=== PATIENT | female | born 2000 | race Caucasian/White ===

== ENCOUNTER 2022-01-29 10:18 | Day surgery (SDC) | payer BC, SELFPAY ==
[2022-01-29] VITALS (22 sets, daily range): BP systolic 102–133; BP diastolic 35–81; PULSE 77–104; RESP 14–17; TEMP 36.1–36.2; O2SAT 98–100
--- NOTE | ~2022-01-29 | CT_ITS ---
EXAMINATION: CT abdomen pelvis w con DATE: 01/29/2022 12:24 INDICATION: Right lower quadrant abdominal pain TECHNIQUE: Computed tomography (CT) of the abdomen and pelvis was performed with 100 mL Omnipaque-350 intravenous contrast. Automated exposure control and iterative reconstruction technique were employe d. The dose-length product was 458.84 mGy-cm. COMPARISON: None FINDINGS: Mild dependent atelectasis in the left lower lobe. Heart size is normal. No pericardial or pleural ef fusion. Liver, gallbladder, spleen, pancreas, bilateral adrenal glands and kidneys are normal. The ap pendix is dilated to 1.5 cm diameter with prominent serosal enhancement, mural edema at the base of t he appendix and adjacent to the cecum and surrounding inflammatory stranding consistent with acute ap pendicitis. No abscess or free intraperitoneal gas to suggest rupture. Bowels are otherwise unremarka ble. Bladder, anteverted uterus and bilateral adnexa are unremarkable. Negligible likely physiologic free fluid in the cul-de-sac. No pathologically enlarged abdominal or pelvic lymphadenopathy. Bones a re unremarkable. IMPRESSION: 1. Acute appendicitis. Dr. Aparicio discussed these findings with Dr. Chang at 12:45 PM. Reviewed, dictated and finalized at location A. E CLERK IMPRESSION: 1. Acute appendicitis. Dr. Aparicio discussed these findings with Dr. Chang at 1 2:45 PM.
--- NOTE | 2022-01-29 10:50 | ED.ABDPAIN ---
HPI - Abdominal Pain General Chief Complaint: Abdominal Pain Stated Complaint: abd pain Time Seen by Provider: 01/29/22 10:31 History of Present Illness HPI narrative: 21-year-old female history of anxiety depression presents to the emergency room for evaluation of unprovoked abdominal pain that began on night. States pain is located in her right lower quadrant. Associated with intermittent episodes of diarrhea and constipation. No history of IBS. Also endorses nausea. Reports a subjective fever this morning. Pain is worse with ambulation and occasionally radiates into her mid pelvis. Reports less menstrual period was 5 days ago. No concerns over STDs. Denies back pain. Related Data Home Medications Medication Instructions Recorded Confirmed citalopram 10 mg tablet 10 mg PO DAILY 01/29/22 Allergies Allergy/AdvReac Type Severity Reaction Status Date / Time No Known Allergies Allergy Verified 01/29/22 10:28 Review of Systems Review of Systems: CONSTITUTIONAL: Denies fever, chills, or sweats. EYES: Denies visual changes, redness, or discharge. ENT: Denies rhinorrhea, congestion, sore throat, or otalgia. CARDIOVASCULAR: Denies chest pain, palpitations, or edema. RESPIRATORY: Denies cough or dyspnea. GASTROINTESTINAL: Reports abdominal pain, nausea, diarrhea, constipation GENITOURINARY: Denies dysuria or hematuria. SKIN: Denies rash or itching. MUSCULOSKELETAL: Denies back pain, joint pain, or myalgia. NEUROLOGIC: Denies headache, numbness, dizziness, or weakness. PSYCHIATRIC: Denies anxiety or depression. [facility] Past Medical History Medical History (Updated 01/29/22 @ 14:10 by Pino Pemberton MD) Seasonal allergies Exam Narrative: GENERAL: Well-appearing, well-nourished, no physical limitations, and in no acute distress. HEAD: Normocephalic, atraumatic. EYES: Conjunctivae normal, PERRLA and EOMI. CHEST: Clear to auscultation. No respiratory distress. No wheezes rales or rhonchi. HEART: Regular rate and rhythm. No murmur heard. Normal peripheral pulses. ABDOMEN: Soft, RLQ tendeness, nondistended, normal active bowel sounds. No stridor. Positive psoas and obturator signs. BACK: No CVA tenderness EXTREMITIES: Normal range of motion. No edema. No clubbing or cyanosis SKIN: Warm, dry, no rash. No noted wounds NEURO: No focal deficits. Alert and oriented x3. MAEW. CN's II-XI intact bilaterally, normal gait PSYCH: Cooperative. Normal mood and affect. Course Vital Signs Vital signs: Vital Signs Temperature 36.1 C L 01/29/22 10:20 Pulse Rate 89 01/29/22 10:20 Respiratory Rate 15 01/29/22 10:20 Blood Pressure 130/79 01/29/22 10:20 Pulse Oximetry 100 01/29/22 10:20 Oxygen Delivery Room Air 01/29/22 10:20 Temperature 36.1 C L 01/29/22 10:20 Pulse Rate 89 01/29/22 10:20 Respiratory Rate 15 01/29/22 10:20 Blood Pressure 118/62 01/29/22 12:46 Pulse Oximetry 100 01/29/22 12:46 Oxygen Delivery Room Air 01/29/22 10:20 MDM - Abdominal Pain MDM Narrative Medical decision making narrative: 21-year-old female presented emergency room with complaints of right lower quadrant pain concerning for appendicitis. Abdominal exam suspicious for appendicitis. CT scan was positive. On-call surgeon was consulted. IV antibiotics were initiated. Lab Data 01/29/22 10:44 01/29/22 10:44 Labs: Lab Results 01/29/22 01/29/22 01/29/22 Range/Units 10:44 10:44 10:44 WBC 13.6 H (4.5-10.0) K/mm3 RBC 4.97 (4.2-5.4) M/mm3 Hgb 14.5 (12.0-15.0) g/dL Hct 42.9 (37.0-47.0) % MCV 86.3 (80-100) fl MCH 29.2 (26-34) pg MCHC 33.8 (32-36) g/dl RDW 11.6 (11.5-14.5) % Plt Count 199 (150-375) k/mm3 MPV 11.6 H (7.4-10.4) fl Immature Gran % (Auto) 0.3 (0-0.5) % Neut % (Auto) 72.6 (45.5-73.1) % Lymph % (Auto) 20.0 (18.3-44.2) % [place] % (Auto) 5.9 (2.6-8.5) % Eos % (Auto) 0.8 (0-4.4)
[2022-01-29 11:00] LABS: Basophils Absolute Auto 0.1 K/mm3 (0.0-0.1); Basophils Percent Auto 0.4 % (0.2-1.2); Eosinophils Absolute Auto 0.1 K/mm3 (0-0.3); Eosinophils Percent Auto 0.8 % (0-4.4); Hematocrit 42.9 % (37.0-47.0); Hemoglobin 14.5 g/dL (12.0-15.0); Immature Granulocyte Absolute 0.04 K/mm3 (0.00-0.031); Immature Granulocyte Percent A 0.3 % (0-0.5); Lymphocytes Absolute Auto 2.72 K/mm3 (0.9-3.2); Mean Corpuscular HGB Conc 33.8 g/dl (32-36); Mean Corpuscular Hemoglobin 29.2 pg (26-34); Mean Corpuscular Volume 86.3 fl (80-100); Mean Platelet Volume 11.6 fl (7.4-10.4); Monocytes Absolute Auto 0.8 K/mm3 (0.1-0.6); Monocytes Percent Auto 5.9 % (2.6-8.5); Neutrophils Absolute Auto 9.9 K/mm3 (1.3-6.7); Neutrophils Percent Auto 72.6 % (45.5-73.1); Platelet Count Result 199 k/mm3 (150-375); Red Blood Count 4.97 M/mm3 (4.2-5.4); Red Cell Distribution Width 11.6 % (11.5-14.5); White Blood Count 13.6 K/mm3 (4.5-10.0)
[2022-01-29 11:01] LABS: Appearance Urine Clear (Clear); Bilirubin Urine Negative (Negative); Blood Urine Negative (Negative); Color Urine Yellow (Yellow); Glucose Urine UA Negative (Negative); Ketones Urine Negative (Negative); Leukocyte Esterase Ur Negative LEU/UL (Negative); Nitrate Urine Negative (Negative); Protein Urine Negative (Negative); Urobilinogen Urine 0.2 mg/dL (<2.0); pH Urine 8.5 (5.0-9.0)
[2022-01-29] MEDS: ONDANSETRON INJ 4 MG/2 ML VIAL IV PUSH (11:03)
[2022-01-29] MEDS: MORPHINE SULFATE (*CRX) 4 MG/ML INJ IV PUSH (11:03)
[2022-01-29] MEDS: SODIUM CHLORIDE 0.9% IV 1,000 ML 999 ML IV CONT (11:04)
[2022-01-29 11:12] LABS: Add Urine Microscopic? NO
[2022-01-29 11:33] LABS: Lactic Acid Reflex 0.8 mmol/L (0.7-2.0)
[2022-01-29 11:34] LABS: Alanine Aminotransferase 34 U/L (6-35); Albumin Level 4.4 g/dL (3.5-5.1); Alkaline Phosphatase 57 U/L (38-126); Anion Gap 6 mmol/L (8-16); Aspartate Amino Transferase 29 U/L (14-36); Bilirubin,Total 0.7 mg/dL (0.2-1.3); Blood Urea Nitrogen 8 mg/dL (7-17); Calcium 8.9 mg/dL (8.4-10.2); Carbon Dioxide 28 mmol/L (22-30); Chloride 102 mmol/L (98-107); Estimated Glomerular Filt Rate > 60; Glucose 96 mg/dL (65-110); Lipase 46 U/L (23-300); Potassium 3.7 mmol/L (3.4-5.0); Sodium 136 mmol/L (137-145)
--- NOTE | 2022-01-29 14:08 | PM.IMHP ---
H&P: HPI History of Present Illness Date/Time: 01/29/22 14:08 Chief Complaint: lower abdominal pain Narrative: This is a pleasant 21-year-old white female with a history of anxiety/depression that presented to the [facility] emergency room this morning for evaluation of unprovoked abdominal pain that began on night.? States pain is now located in her right lower quadrant.? he states that has been associated with intermittent episodes of nausea but no vomiting..? No history of IBS.? Reports a subjective fever this morning.? She has [employer] student and lives at the dorm but does not have a thermometer there. She notes that the pain is worse with ambulation and occasionally radiates into her mid pelvis.? Reports less menstrual period was 5 days ago.? No concerns over STDs.? Denies back pain. Further history from the patient is that she 1st started noticing some mid abdominal pain at 3:00 p.m.. She slept okay night and went to school and participated in a concert Monday evening. She also ate some RBCs Monday evening but after that had increasing abdominal pain throughout the night and could not sleep. Therefore she tried to go to an urgent care [facility] but when it was close came to the emergency room here at [facility]. Workup in the ED discussed with patient including slightly elevated white count and appendicitis findings without perforation on CT scan. Review of Systems Constitutional: Constitutional: Reports no additional constitutional complaints, Reports fatigue and Denies malaise Eyes: Eyes: Denies change in vision and Denies loss of vision ENT: Reports Normal hearing present, Denies change in voice, Denies dizziness, Denies hoarseness and Denies sore throat Cardiovascular: Cardiovascular: Denies chest pain, Denies leg edema and Denies dyspnea Respiratory: Respiratory: Denies cough, Denies dyspnea and Denies wheezing Comments: history of seasonal allergies for most of her life and has seen an junior high math teacher both in [place] and here. Gastrointestinal: Gastrointestinal: Denies hematochezia, Denies change in bowel habits and Denies heartburn Genitourinary: Genitourinary: Denies urinary frequency and Denies urinary incontinence Neurologic: Reports Normal hearing present, Denies confusion, Denies dizziness, Denies loss of vision, Denies memory loss and Denies seizure-like activity Psychiatric: Psychiatric: Denies confusion and Denies memory loss Comments: Has had some history of anxiety and depression and is taking citalopram Endocrine: Endocrine: Denies cold intolerance and Reports fatigue Hematologic/Lymphatic: Hematologic/Lymphatic: Denies easy bleeding and Denies easy bruising Allergic/Immunologic: Allergic/Immunologic: Denies wheezing PMFSH Past Medical History Medical History (Updated 01/29/22 @ 14:10 by Pino Pemberton MD) Seasonal allergies Meds Home Medications and Allergies Home Medications Medication Instructions Recorded Confirmed Type citalopram 10 mg tablet 10 mg PO DAILY 01/29/22 History Allergies Allergy/AdvReac Type Severity Reaction Status Date / Time No Known Allergies Allergy Verified 01/29/22 10:28 Vital Signs Vital Signs - 24 hr 01/29/22 10:20 01/29/22 10:56 01/29/22 11:01 Temperature 36.1 C L Pulse Rate 89 Respiratory Rate 15 Blood Pressure 130/79 121/74 Pulse Oximetry 100 99 100 Oxygen Delivery Room Air 01/29/22 11:02 01/29/22 11:15 01/29/22 11:16 Temperature Pulse Rate Respiratory Rate Blood Pressure 129/66 Pulse Oximetry 100 99 99 Oxygen Delivery 01/29/22 11:31 01/29/22 11:32 01/29/22 11:46 Temperature Pulse Rate Respiratory Rate Blood Pressure 130/71 133/79 Pulse Oximetry 100 100 100 Oxygen Delivery 01/29/22 11:47 01/29/22 12:05 01/29/22 12:38 Temperature Pulse Rate Respiratory Rate Blood Pressure Pulse Oximetry 100 100 100 Oxygen Delivery 01/20
--- NOTE | 2022-01-29 14:23 | WPDHPUPDATE1 ---
History and Physical Update Update Date/Time: 01/29/22 14:23 History and Physical has been reviewed, including an updated exam of the patient. patient told me in the ED that the last time she had something to eat or drink was last evening between 10 and midnight. There are NO changes in the patient's condition. Risks, benefits, and alternatives have been discussed and questions answered. Patient agrees to proceed with procedure.
--- NOTE | 2022-01-29 14:28 | WPDANESEPPF ---
Anes - Initial Pre Proc Eval Procedure: Lap appendectomy Date/Time: 01/29/22 14:28 Surgeon: Pino Pemberton MD Pre Op Diagnosis: Appendicitis Patient Data Age: 21 Gender: F Height: Weight: 81.6 kg Last Vital Signs Temp 36.1 C L 01/29/22 10:20 Pulse 89 01/29/22 10:20 Resp 15 01/29/22 10:20 BP 118/62 01/29/22 12:46 Pulse Ox 100 01/29/22 12:46 O2 Del Method Room Air 01/29/22 10:20 Allergies Allergy/AdvReac Type Severity Reaction Status Date / Time No Known Allergies Allergy Verified 01/29/22 10:28 Home Medications Medication Instructions Recorded Confirmed Type citalopram 10 mg tablet 10 mg PO DAILY 01/29/22 History Laboratory Tests 01/29/22 01/29/22 01/29/22 10:44 10:44 10:44 WBC 13.6 K/mm3 H K/mm3 (4.5-10.0) RBC 4.97 M/mm3 M/mm3 (4.2-5.4) Hgb 14.5 g/dL g/dL (12.0-15.0) Hct 42.9 % % (37.0-47.0) MCV 86.3 fl fl (80-100) MCH 29.2 pg pg (26-34) MCHC 33.8 g/dl g/dl (32-36) RDW 11.6 % % (11.5-14.5) Plt Count 199 k/mm3 k/mm3 (150-375) MPV 11.6 fl H fl (7.4-10.4) Immature Gran % (Auto) 0.3 % % (0-0.5) Neut % (Auto) 72.6 % % (45.5-73.1) Lymph % (Auto) 20.0 % % (18.3-44.2) [place] % (Auto) 5.9 % % (2.6-8.5) Eos % (Auto) 0.8 % % (0-4.4) Baso % (Auto) 0.4 % % (0.2-1.2) Lymph # (Auto) 2.72 K/mm3 K/mm3 (0.9-3.2) [place] # (Auto) 0.8 K/mm3 H K/mm3 (0.1-0.6) Eos # (Auto) 0.1 K/mm3 K/mm3 (0-0.3) Baso # (Auto) 0.1 K/mm3 K/mm3 (0.0-0.1) Abs Immat Gran (auto) 0.04 K/mm3 H K/mm3 (0.00-0.031) Absolute Neuts (auto) 9.9 K/mm3 H K/mm3 (1.3-6.7) Absolute Nucleated RBC 0.0 K/mm3 K/mm3 (0.0-0.012) Nucleated RBC % 0.0 % % (0.0-0.2) Sodium 136 mmol/L L mmol/L (137-145) Potassium 3.7 mmol/L mmol/L (3.4-5.0) Chloride 102 mmol/L mmol/L (98-107) Carbon Dioxide 28 mmol/L mmol/L (22-30) Anion Gap 6 mmol/L L mmol/L (8-16) BUN 8 mg/dL mg/dL (7-17) Creatinine 0.80 mg/dL mg/dL (0.7-1.0) Estim Creat Clear Calc Not Reportable Estimated GFR > 60 (59 - ) Glucose 96 mg/dL mg/dL (65-110) Lactic Acid Calcium 8.9 mg/dL mg/dL (8.4-10.2) Total Bilirubin 0.7 mg/dL mg/dL (0.2-1.3) AST 29 U/L U/L (14-36) ALT 34 U/L U/L (6-35) Alkaline Phosphatase 57 U/L U/L (38-126) Total Protein 8.0 g/dL g/dL (6.3-8.2) Albumin 4.4 g/dL g/dL (3.5-5.1) Lipase 46 U/L U/L (23-300) Urine Color Yellow (Yellow) Urine Appearance Clear (Clear) Urine pH 8.5 (5.0-9.0) Ur Specific [place] 1.020 (1.001-1.035) Urine Protein Negative mg/dL mg/dL (Negative) Urine Glucose (UA) Negative mg/dL mg/dL (Negative) Urine Ketones Negative mg/dL mg/dL (Negative) Ur Blood (Man) Negative (Negative) Urine Nitrate Negative (Negative) Urine Bilirubin Negative (Negative) Urine Urobilinogen 0.2 mg/dL mg/dL (<2.0) Leukocyte Esterase Rfl Negative BRIDGETTE/UL BRIDGETTE/UL (Negative) 01/29/22 10:49 WBC RBC Hgb Hct MCV MCH MCHC RDW Plt Count MPV Immature Gran % (Auto) Neut % (Auto) Lymph % (Auto) [place] % (Auto) Eos % (Auto) Baso % (Auto) Lymph # (Auto) [place] # (Auto) Eos # (Auto) Baso # (Auto) Abs Immat Gran (auto) Absolute Neuts (auto) Absolute Nucleated RBC Nucleated RBC % Sodium Potassium Chloride Carbon Dioxide Anion Gap BUN Creatini
[2022-01-29] MEDS: KETOROLAC 15 MG/ML VIAL (*BKC) IV PUSH (16:40)
[2022-01-29] MEDS: BUPIVACAINE/EPINEPHRINE 0.5% 10 ML VIAL 30 ML INFILTRATE (16:43)
[2022-01-29] MEDS: LACTATED RINGERS 1,000 ML 30 ML IV CONT ×2 (16:59)
--- NOTE | 2022-01-29 17:04 | W.PM.PROC2 ---
Procedure Note - Detailed Date of Procedure 01/29/22 Pre-op Diagnosis Acute uncomplicated Appendicitis Post-op Diagnosis Same Procedure Performed laparoscopic appendectomy Surgeon Pino Pemberton MD Rooming House Operator Nasra KRUEGER. OR Bulk Sausage Casing Tier Off Anesthesia General Indications Patient had elevated white count, CT scan consistent with acute uncomplicated appendicitis and abdominal pain. Findings Patient had a retrocecal inflamed appendix without signs of perforation. Description of Procedure The patient was seen again in the Holding Room. The risks, benefits, complications, treatment options, and expected outcomes were discussed with the patient and/or family. The possibilities of reaction to medication, pulmonary aspiration, perforation of viscus, bleeding, recurrent infection, finding a normal appendix, the need for additional procedures, failure to diagnose a condition, and creating a complication requiring transfusion or operation were discussed. There was concurrence with the proposed plan and informed consent was obtained. The site of surgery was properly noted/marked. The patient was taken to Operating Room, and a time out was preformed which identified this as the proper patient, and the procedure verified as laparoscopic appendectomy, possible open. The patient was placed in the supine position and general anesthesia was induced, along with placement of an orogastric tube, SCD hose, and a Frederick catheter. The abdomen was prepped and draped in a sterile fashion. A 5 mm umbilical incision was made and the peritoneal cavity was accessed using the Veress needle technique. Once the abdomen was insufflated to 14 mmHg pressure a 5 mm XL trocar over the 0? 5 mm scope was carefully twisted into the abdomen via the umbilicus. The pneumoperitoneum was then established to steady pressure of 14 mm Hg. A 12 mm laparoscopic port was placed through a transverse suprapubic incision. An additional 5 mm cannula was then placed in in the left upper quadrant at the level correction between the left costal margin and the umbilicus under direct vision. A careful evaluation of the entire abdomen was carried out. The patient was placed in Trendelenburg and left lateral decubitus position. The small intestines were retracted in the cephalad and left lateral direction away from the pelvis and right lower quadrant. The patient was found to have an enlarged and inflamed appendix that was extending [into the right side of the pelvis. There was no evidence of perforation. The appendix was carefully dissected. Initially it was hard to see but we saw the tip of it sticking up in the right colic gutter at the level of the umbilicus. This was grasped and the tip was inflamed so I could retracted upwards or anteriorly. I then spent approximately half an hour carefully dissecting out the adhesions and rotating the cecum medially because the appendix was retrocecal. This included placing 5 mm clips on 2 different vessels in the mesoappendix because this was twisted and oriented in a different direction than normal. Bovie cautery was used on several small vessels in the mesoappendix as we dissected the appendix out to make sure that I had cleanly from the lateral and posterior wall of the cecum. Once it was free a 45 mm ethicon endogastroentestinal stapler with a intestinal load was placed across the the base of the appendix probably taking a small cuff of cecum.. This was fired and hemostasis was checked along the staple line and appeared to be adequate. Minimal appendiceal stump was left in place. Just prior to placing the stapler across the appendix because of some pooling of some venous blood behind the cecum I placed a unfolded 4 x 4 in the abdomen. By the time I took this when out it was soaked and we put another 1 in and it only became partially so. After removing both of these prior to removing the appendix in the bag there was no sign of further bleeding in the area of the s
[2022-01-29] MEDS: fentaNYL CITRATE INJ (*CRX) 100 MCG/2 ML VIAL 25 MCG IV PUSH ×2 (17:41→17:44)
[2022-01-29] MEDS: HYDROcodone/acetaminophen (*CRX) 5-325 MG TABLET 1 TAB PO (18:08)
== END 2022-01-29 19:08 | disposition home or self-care (01) ==
LOC: ANHED 12:56 → ANHSURGERY 14:19
PROVIDERS: Emergency Provider Nurse Practitioner Family; Visit Provider Surgery
PROC: 0DTJ4ZZ Resection of Appendix, Percutaneous Endoscopic Approach (ICD-10-PCS; CPT 44970; principal; 2022-01-29 15:30)
DX: K37 Unspecified appendicitis (principal); J30.2 Other seasonal allergic rhinitis
CPT/HCPCS: 44970; 36415; 74177; 80053; 81003; 81025; 83605; 83690; 85025; 88304; 96361; 96374; 96375; 99285; A9270; J1100; J1885; J2250; J2270; J2405; J2543; J2704; J2710; J3010; J7030; J7120; Q9967

== ENCOUNTER → 2022-03-08 07:50 | Outpatient (CLI) | payer BC, SELFPAY ==
--- NOTE | ~2022-03-08 | US_ITS ---
Limited Abdominal Sonogram: Real-time sonographic imaging of the right upper quadrant was performed. Clinical History: Abdominal pain Findings: The liver appears echogenic, with no evidence of mass lesion or bile duct dilatation. Main portal vein demonstrates normal direction of flow. The gallbladder is well distended, and appears no rmal with no evidence of gallstone or wall thickening. The common bile duct measures 4 mm. The visua lized pancreas, aorta, and IVC are unremarkable. Right kidney measures 10.3 cm in length, without hyd ronephrosis. Impression: Diffuse fatty infiltration of the liver. Reviewed, dictated and finalized at location M. ER TACK Impression: Diffuse fatty infiltration of the liver.
== END ==
PROVIDERS: PCP Surgery; Visit Provider Surgery
DX: R11.0 Nausea (principal); R10.9 Unspecified abdominal pain; K76.0 Fatty (change of) liver, not elsewhere classified
CPT/HCPCS: 76705

== ENCOUNTER 2022-03-14 09:40 | Outpatient (CLI) | payer BC, SELFPAY ==
--- NOTE | ~2022-03-14 | NM_ITS ---
EXAMINATION: NM hepatobiliary wo pharm DATE: 03/14/2022 12:32 INDICATION: Right-sided abdominal pain COMPARISON: None. TECHNIQUE: 5 mCi Tc-99m mebrofenin (Choletec) was administered intravenously. Scintigraphic images o f the abdomen were obtained for one hour. At the 1 hour time point, the patient drank 8 oz Ensure, an d imaging was continued for 60 minutes. Gallbladder ejection fraction was calculated by the technolog ist. FINDINGS: There is normal clearance of radiotracer from the blood pool. There is homogeneous tracer u ptake by the liver. Activity progresses to the bowel and gallbladder. The gallbladder ejection fract ion (GBEF) is 58%. Note that with this technique, normal GBEF >= 33%. IMPRESSION: 1. Normal hepatobiliary scan. Reviewed, dictated and finalized at location B. E ATTORNEY
== END 2022-03-14 09:41 | disposition home or self-care (01) ==
PROVIDERS: PCP Surgery; Visit Provider Surgery
DX: R10.9 Unspecified abdominal pain (principal)
CPT/HCPCS: 78226; A9537

== ENCOUNTER 2022-03-18 09:27 | Outpatient (CLI) | payer BC, SELFPAY ==
[2022-03-18 09:56] LABS: Amylase 70 U/L (30-110)
== END 2022-03-18 09:28 | disposition home or self-care (01) ==
PROVIDERS: Visit Provider Surgery
DX: R10.11 Right upper quadrant pain (principal); Z01.818 Encounter for other preprocedural examination
CPT/HCPCS: 36415; 82150; 86850; 86900; 86901

== ENCOUNTER 2022-03-21 00:10 | Day surgery (SDC) | payer BC, SELFPAY ==
[2022-03-17 14:01] VITALS: BMI 29.9
--- NOTE | 2022-03-17 14:07 | PC.NURSE ---
Report to the Outpatient Waiting Room, entrance under the green pavilion located off [facility], at time 11:00 on date 03/21/22. Planned Procedure Time: 1:00. Time changes happen often and if your time is changed the preop area will call you the afternoon before. - You and your visitor will be asked to self-screen and do not enter if you have any COVID symptoms. - Only one visitor is requested with a max of two and NO children visitors are allowed at this time. - The patient visitor may be requested to leave or wait in car when not with patient due to distancing restrictions. - A mask is optional within the hospital at this time. Patients may have clear liquids (water, carbonated beverages, clear teas, apple juice) until 3 hours prior to surgery with a maximum of 20 ounces. - No food from midnight until time of surgery Take the following medications with a SIP of water the morning of surgery: N/A DO NOT STOP ANY OF YOUR OTHER PRESCRIPTION MEDICATIONS PRIOR TO SURGERY EXCEPT THE FOLLOWING Medications to discontinue per physician: N/A Date to take last dose: N/A Please no make-up, nail welsh, hairspray, perfume, deodorant, or body powder the day of surgery. No jewelry (including any body piercings) or valuables the day of surgery, leave them at home. Please take a shower or bath the night before, or the morning of, surgery with an antibacterial soap (HIBICLENS). Wear comfortable, loose fitting clothing. - Jewelry must be removed prior to entering the operating room. Rings and piercings that are not removed may be cut off. - The hospital will not accept responsibility for valuables. - Please leave all valuables, including medications, at home the day of surgery. If you are going home after surgery, a licensed hog driver must drive you home. - NO public transportation without another adult if you receive anesthesia. - We recommend that an adult stay with you for 24 hours following discharge. - We also recommend that you do not drive, make important decision, drink alcoholic beverages, or take any drugs that were not prescribed by your health care provider for at least 24 hours after your discharge time. Follow any additional instructions given to you from your surgeon. If you or anyone in your household have experienced Covid symptoms in the past week, please notify your surgeon or the nurse liaison at the phone number below for possible testing. Telephone instructions given to PT - NITO LILLY and asked if any additional questions and then verbalized understanding. Patient advised to call surgeon office or pre surgery nurse liaison [phone] if any additional questions.
[2022-03-21] VITALS (11 sets, daily range): BP systolic 102–133; BP diastolic 47–76; PULSE 79–115; RESP 14–20; TEMP 36.2–36.7; O2SAT 98–100
[2022-03-21] MEDS: KETOROLAC 15 MG/ML VIAL (*BKC) IV PUSH (12:00)
[2022-03-21] MEDS: LACTATED RINGERS 1,000 ML 30 ML IV CONT ×2 (12:00→14:18)
[2022-03-21] MEDS: ACETAMINOPHEN 500 MG TABLET 1000 MG PO (12:00)
--- NOTE | 2022-03-21 12:13 | WPDANESEPPF ---
Anes - Initial Pre Proc Eval Procedure: Operation Date: 03/21/22 13:00 Proposed Procedures p Laparoscopic Cholecystectomy, Possible Open - John Bass MD Date/Time: 03/21/22 12:13 Surgeon: John Bass MD Pre Op Diagnosis: Rt Upper Quad Abd Pain, Abnormal HIDA Scan Patient Data Age: 22 Gender: F Height: 1.65 m Weight: 82.8 kg Last Vital Signs Temp 36.2 C L 03/21/22 12:05 Pulse 79 03/21/22 12:05 Resp 14 03/21/22 12:05 BP 128/67 03/21/22 12:05 Pulse Ox 100 03/21/22 12:05 O2 Del Method Room Air 03/21/22 12:05 Allergies Allergy/AdvReac Type Severity Reaction Status Date / Time No Known Allergies Allergy Verified 03/21/22 12:10 Home Medications Medication Instructions Recorded Confirmed Type citalopram 10 mg tablet 10 mg PO HS 01/29/22 03/17/22 History norethindrone 1 mg-ethinyl 1 tablet PO HS 03/17/22 03/17/22 History estradiol 35 mcg tablet ([place]) Patient hx anesthesia problems: none Family hx anesthesia problems: none Results Review: All pre-operative results and documents have been reviewed as part of the pre-operative evaluation. [facility] Past Medical History Medical History Seasonal allergies Surgical History Surgical History History of appendectomy laparoscopic appendectomy 01/29/22 Social History Social History Smoking status: Never smoker Alcohol intake: current Alcohol use details: 1/MONTH Substance use: never Substance use type: does not use Living arrangements: with roommate(s) Occupation/Education: student Spiritual care concerns: No Anes - Eval Final PreProcedure Day of Procedure 03/21/22 12:13 Patient weight: obese Heart: regular rate and rhythm Lungs: clear to auscultation Airway: Mallampati scale class II Neurological: alert and oriented Last oral intake: >/= 8 hours ASA classification: III Emergent: no Anesthetic plan: proceed Anesthesia type and monitoring: general ETT and standard monitoring Results Review: All pre-operative results and documents have been reviewed as part of the pre-operative evaluation. Informed Consent: The patient's anesthetic plan and its attendant risks and benefits were discussed with the patient/family/POA. Questions were solicited and answers provided to the satisfaction of the patient/family/POA.
--- NOTE | 2022-03-21 12:57 | WPDHPUPDATE1 ---
History and Physical Update Update Date/Time: 03/21/22 12:57 History and Physical has been reviewed, including an updated exam of the patient. There are NO changes in the patient's condition. Risks, benefits, and alternatives have been discussed and questions answered. Patient agrees to proceed with procedure.
[2022-03-21] MEDS: ceFAZolin 2 GM/D5W 50 ML 2 GM/50 ML BAG IVPB (13:04)
[2022-03-21] MEDS: LIDO 2%/EPINEPHRINE 1:100,000 50 ML VIAL 20 ML INFILTRATE (13:30)
[2022-03-21] MEDS: BUPivacaine HCL 0.5% 10 ML AMP 20 ML INFILTRATE (13:30)
[2022-03-21] MEDS: KETOROLAC 30 MG/ML VIAL (*BKC) IV PUSH (13:58)
--- NOTE | 2022-03-21 14:21 | W.PM.PROC2 ---
Procedure Note - Detailed Date of Procedure 03/21/22 Pre-op Diagnosis Rt Upper Quad Abd Pain, Abnormal HIDA Scan Post-op Diagnosis Other (Mild chronic acalculous cholecystitis) Procedure Performed Laparoscopic cholecystectomy Surgeon John Bass MD Chip Separator Geraldine Wall [facility] Anesthesia General Indications Patient is a 22-year-old female who been having almost daily right upper quadrant abdominal pain associated with nausea with eating. Abdominal ultrasound showed no evidence of gallstones. HIDA scan showed a normal ejection fraction however drinking Ensure re-created all of her symptoms during the HIDA scan. She presents now for a elective laparoscopic cholecystectomy. Findings The gallbladder was distended with some mild chronic thickening and some adhesions of the duodenum to the gallbladder consistent with mild chronic acalculous cholecystitis. Description of Procedure After informed consent was obtained the patient was brought to the operating room where she was placed in a supine position and then general endotracheal anesthesia was administered. The abdomen was then prepped and draped in usual sterile fashion after placement of an orogastric tube to decompress the stomach. A time-out was then performed correctly identifying the patient as well as procedure to be performed and I verified she was given preoperative IV antibiotics. I 1st entered the abdomen in the left upper quadrant using a 5millimeter Optiview port to enter with a direct optical insertion. Once inside the abdomen insufflated to an adequate pneumoperitoneum of 15millimeters of mercury with CO2. Looking around the area of the umbilicus emboli there were no adhesions in this area so I placed a 5millimeter periumbilical trocar port. The laparoscope was switched over to the periumbilical trocar port and then looking into the upper portions of the abdomen I did see the distended gallbladder and a few adhesions of the duodenum to the gallbladder wall. There was no evidence of acute inflammation however but there was likely some chronic acalculous cholecystitis. I then placed an epigastric 10millimeter trocar port and 2 right lateral subcostal 5millimeter trocar ports all under direct visualization. The gallbladder was then held with a laparoscopic instrument at the domeand then elevated over the right half of the liver towards the right shoulder. A 2nd grasper is used then used to hold the gallbladder at the infundibulum. I then proceeded to take down the adhesions to the gallbladder wall from the duodenum taking great care not to injure the duodenum. Once this was done, I then continued my dissection of the visceral peritoneum off of the infundibulum of gallbladder and then I dissected out what I believed to be the cystic duct. The cystic artery was posterior medial to the cystic duct in it's usual location and there was a posterior branch to the cystic artery. Both of these branches were dissected out circumferentially. The posterior wall of the gallbladder at the infundibulum was then dissected free of the liver until the critical critical view was obtained. At this point I then placed 2 clips proximal on the cystic duct and 2 clips distally high on the infundibulum of the gallbladder. The cystic duct was then divided with Endo Juno. In a similar fashion both the anterior and the pan devulcanizer helper cystic artery were clipped and divided as well. The gallbladder was resected off of the liver with electrocautery and no bile was spilled. Once the gallbladder was free of the liver was placed into an Endo-Catch bag and brought out through the epigastric port site. The gallbladder and it's contents were sent to pathology for examination. I then irrigated out the right upper quadrant of the abdomen and the gallbladder fossa with sterile saline solution. Hemostasis was excellent. There is no evidence of bile leak. I then aspirated the fluid from the right upper quadrant of the abdomen and
[2022-03-21] MEDS: fentaNYL CITRATE INJ (*CRX) 100 MCG/2 ML VIAL 25 MCG IV PUSH ×6 (14:54→16:30)
[2022-03-21] MEDS: oxyCODONE HCL (*CRX) 5 MG TAB IR PO (15:40)
== END 2022-03-21 17:16 | disposition home or self-care (01) ==
PROVIDERS: Visit Provider Surgery
PROC: 0FT44ZZ Resection of Gallbladder, Percutaneous Endoscopic Approach (ICD-10-PCS; CPT 47562; principal; 2022-03-21 13:00)
DX: K81.1 Chronic cholecystitis (principal); E66.9 Obesity, unspecified; Z68.30 Body mass index [BMI] 30.0-30.9, adult
CPT/HCPCS: 47562; 36415; 74177; 80053; 81001; 81025; 83690; 85025; 88304; 96361; 96374; 96375; 99284; A9270; C1713; J0690; J1100; J1170; J1885; J2250; J2405; J2704; J2710; J3010; J7030; J7120; Q9967

== ENCOUNTER 2022-03-21 20:35 | Emergency (ER) | payer BC, SELFPAY ==
--- NOTE | ~2022-03-21 | CT_ITS ---
EXAMINATION: CT abdomen pelvis w con DATE: 03/21/2022 21:44 INDICATION: Status post laparoscopic cholecystectomy today, with worsening right upper quadrant pain. TECHNIQUE: Computed tomography (CT) of the abdomen and pelvis was performed with 100 mL Omnipaque-350 intravenous contrast. Automated exposure control and iterative reconstruction technique were employe d. The dose-length product was 608.41 mGy-cm. COMPARISON: 01/29/2022. FINDINGS: Lower thorax: Unremarkable Liver: Normal. Biliary/Gallbladder: Gallbladder is absent. No bile duct dilation. Pancreas: No mass or duct dilation. Spleen: Normal. Adrenals:No mass. Kidneys: No mass, stone, or hydronephrosis. GI tract: No small or large bowel dilation. The appendix is surgically absent. Uniform bowel wall enh ancement. Mesentery/Peritoneum: Minimal perihepatic and gas. Retroperitoneum: No mass. Pelvis: Pelvic organs are within normal limits. Small volume free pelvic fluid. Soft Tissues: Minimal subcutaneous gas and stranding in expected locations status post laparoscopic c holecystectomy. Bones: No acute osseous finding. IMPRESSION: Expected postsurgical changes in the abdomen and pelvis, status post laparoscopic cholecystectomy. Ot herwise, no acute abdominopelvic process detected. Reviewed, dictated and finalized at location K. [facility] IMPRESSION: Expected postsurgical changes in the abdomen and pelvis, status post laparoscop ic cholecystectomy. Otherwise, no acute abdominopelvic process detected.
[2022-03-21 20:37] VITALS: BP 142/76; PULSE 107; RESP 17; TEMP 36.4; O2SAT 99
--- NOTE | 2022-03-21 20:59 | ED.ABDPAIN ---
HPI - Abdominal Pain General Chief Complaint: Abdominal Pain Stated Complaint: pain after gallbladder removal Time Seen by Provider: 03/21/22 20:37 History of Present Illness HPI narrative: Patient is a 22-year-old female status postcholecystectomy earlier today presenting with worsening right upper quadrant pain. Patient states that she was discharged earlier this afternoon after undergoing elective cholecystectomy. States that they gave her fentanyl prior to discharge and her pain was well controlled. States that she ate dinner tonight and then the pain returned and has been gradually worsening. States it is 10 out of 10 currently. States that she took a Vicodin without improvement in the pain. She also reports some nausea but no vomiting. No fevers, chest pain, shortness of breath, cough, dysuria, diarrhea. Related Data Home Medications Medication Instructions Recorded Confirmed citalopram 10 mg tablet 10 mg PO HS 01/29/22 03/17/22 norethindrone 1 mg-ethinyl 1 tablet PO HS 03/17/22 03/17/22 estradiol 35 mcg tablet (Dasetta) Allergies Allergy/AdvReac Type Severity Reaction Status Date / Time No Known Allergies Allergy Verified 03/21/22 12:10 Review of Systems Review of Systems: All systems reviewed & are unremarkable except as noted in HPI and below PMFSH Past Medical History Medical History Seasonal allergies Surgical History Surgical History History of appendectomy laparoscopic appendectomy 01/29/22 Social History Social History Smoking status: Never smoker Alcohol intake: current Alcohol use details: 1/MONTH Substance use: never Substance use type: does not use Living arrangements: with roommate(s) Occupation/Education: student Spiritual care concerns: No Exam Narrative: GENERAL: Well-appearing, well-nourished, and in no acute distress. HEAD: Normocephalic, atraumatic. EYES: PERRLA and EOMI. ENT: Nares clear, no rhinorrhea or epistaxis. Mucous membranes moist. NECK: Supple. CHEST: Clear to auscultation. No respiratory distress. HEART: Regular rate and rhythm. No murmur heard. Normal peripheral pulses. ABDOMEN: Soft, several abdominal incisions with skin adhesive overlying, no dehiscence or overlying erythema, patient is very tender in her right upper quadrant/epigastrium, no guarding or rebound EXTREMITIES: Normal range of motion. No edema. SKIN: Warm, dry, no rash. NEURO: No focal deficits. Alert and oriented x3. PSYCH: Normal mood and affect. Course Vital Signs Vital signs: Vital Signs Temperature 97.5 F L 03/21/22 20:37 Pulse Rate 107 H 03/21/22 20:37 Respiratory Rate 17 03/21/22 20:37 Blood Pressure 142/76 H 03/21/22 20:37 Pulse Oximetry 99 03/21/22 20:37 Temperature 97.5 F L 03/21/22 20:37 Pulse Rate 109 H 03/21/22 21:57 Respiratory Rate 18 03/21/22 21:57 Blood Pressure 124/77 03/21/22 21:57 Pulse Oximetry 100 03/21/22 21:57 MDM - Abdominal Pain MDM Narrative Medical decision making narrative: Patient is a 22-year-old female presenting with worsening right upper quadrant pain in the setting of a cholecystectomy today. Patient is slightly tachycardic, though his vitals are within normal limits. Exam is remarkable for the above. Patient is rather tender on exam, more than I would expect for postoperative pain so will obtain CT abdomen pelvis to evaluate for any acute abnormalities. Blood work is unremarkable. Very mild transaminitis. CT abdomen pelvis with expected postoperative changes but no other acute abnormalities. On reevaluation, the patient is resting comfortably. Discussed with her that her pain is likely postoperative pain. We will send in a prescription for Zofran to help with the nausea. Advised that she call her surgeon in the morning to sc
[2022-03-21] MEDS: HYDROmorphone HCL INJ (*CRX) 1 MG/ML SYR 0.5 MG IV PUSH (21:10)
[2022-03-21] MEDS: SODIUM CHLORIDE 0.9% IV 1,000 ML 999 ML IV CONT (21:10)
[2022-03-21] MEDS: ONDANSETRON INJ 4 MG/2 ML VIAL IV PUSH (21:10)
[2022-03-21 21:17] LABS: Basophils Percent Auto 0.1 % (0.2-1.2); Hematocrit 43.3 % (37.0-47.0); Hemoglobin 14.6 g/dL (12.0-15.0); Immature Granulocyte Absolute 0.03 K/mm3 (0.00-0.031); Immature Granulocyte Percent A 0.4 % (0-0.5); Lymphocytes Absolute Auto 0.96 K/mm3 (0.9-3.2); Lymphocytes Percent Auto 11.2 % (18.3-44.2); Mean Corpuscular HGB Conc 33.7 g/dl (32-36); Mean Corpuscular Hemoglobin 28.9 pg (26-34); Mean Corpuscular Volume 85.6 fl (80-100); Mean Platelet Volume 11.7 fl (7.4-10.4); Monocytes Absolute Auto 0.1 K/mm3 (0.1-0.6); Monocytes Percent Auto 1.2 % (2.6-8.5); Neutrophils Absolute Auto 7.4 K/mm3 (1.3-6.7); Neutrophils Percent Auto 87.1 % (45.5-73.1); Platelet Count Result 232 k/mm3 (150-375); Red Blood Count 5.06 M/mm3 (4.2-5.4); Red Cell Distribution Width 11.6 % (11.5-14.5); White Blood Count 8.5 K/mm3 (4.5-10.0)
[2022-03-21 21:18] LABS: Appearance Urine Slightly Cloudy (Clear); Bilirubin Urine Negative (Negative); Blood Urine Negative (Negative); Color Urine Light Yellow (Yellow); Glucose Urine UA Negative (Negative); Ketones Urine Negative (Negative); Leukocyte Esterase Ur Negative LEU/UL (Negative); Nitrate Urine Negative (Negative); Protein Urine Negative (Negative); Specific Grav Ur <= 1.005 (1.001-1.035); Urobilinogen Urine 0.2 mg/dL (<2.0)
[2022-03-21 21:22] LABS: Amorphous Sediment Urine Few; Bacteria Urine Trace /hpf; Mucus Urine Rare /lpf; RBC Urine 0-2 /hpf (0-2); Squamous Epithelial Cell Urine Occasional /hpf (Few); WBC Urine 0-3 /hpf
[2022-03-21 21:24] LABS: Add Urine Microscopic? YES
[2022-03-21 21:26] LABS: Alkaline Phosphatase 58 U/L (38-126); Anion Gap 9 mmol/L (8-16); Aspartate Amino Transferase 42 U/L (14-36); Bilirubin,Total 0.4 mg/dL (0.2-1.3); Blood Urea Nitrogen 7 mg/dL (7-17); Calcium 8.6 mg/dL (8.4-10.2); Carbon Dioxide 22 mmol/L (22-30); Chloride 108 mmol/L (98-107); Estimated CRCL calculation 115 ml/min; Estimated Glomerular Filt Rate > 60; Glucose 176 mg/dL (65-110); Lipase 47 U/L (23-300); Sodium 139 mmol/L (137-145)
[2022-03-21 21:34] LABS: Alanine Aminotransferase 50 U/L (6-35)
[2022-03-21 21:57] VITALS: BP 124/77; PULSE 109; RESP 18; O2SAT 100
== END 2022-03-21 22:56 | disposition home or self-care (01) ==
PROVIDERS: Emergency Provider Emergency Medicine
DX: G89.18 Other acute postprocedural pain (principal); R10.11 Right upper quadrant pain; K91.0 Vomiting following gastrointestinal surgery
CPT/HCPCS: 36415; 74177; 80053; 81001; 81025; 83690; 85025; 96361; 96374; 96375; 99284; J1170; J2405; J7030; Q9967